=== PATIENT | female | born 1990 | race American Indian/Alaskan Native ===

== ENCOUNTER 2017-09-16 14:43 | Outpatient (CLI) | payer OTHER | END 2017-09-17 11:12 | disposition home or self-care (01) | LOC: OBS/DEL 14:43 | DX: O47.1 False labor at or after 37 completed weeks of gestation (principal); Z34.03 Encounter for supervision of normal first pregnancy, third trimester ==

== ENCOUNTER 2017-09-26 10:05 | Inpatient (IN) | payer OTHER ==
[~2017-09-26] VITALS: Ht 167.6 cm; Wt 62.6 kg
[2017-09-26] MEDS ORDERED: FE C PLUS TABL1 EACH PO (14:13)
[2017-09-26] MEDS ORDERED: PRENATAL 19 TA1 EAC1 PO (14:13)
== END 2017-09-28 12:23 | disposition home or self-care (01) | DRG 775 ==
LOC: LDR 10:05 → OB/GYN 12:23
PROC: 10E0XZZ Delivery of Products of Conception, External Approach (ICD-10-PCS; principal; 2017-09-26)
PROC: 0W8NXZZ Division of Female Perineum, External Approach (ICD-10-PCS; 2017-09-26)
PROC: 10907ZC Drainage of Amniotic Fluid, Therapeutic from Products of Conception, Via Natural or Artificial Opening (ICD-10-PCS; 2017-09-26)
PROC: 4A1HXCZ Monitoring of Products of Conception, Cardiac Rate, External Approach (ICD-10-PCS; 2017-09-26)
DX: O69.1XX0 Labor and delivery complicated by cord around neck, with compression, not applicable or unspecified (principal); Z3A.40 40 weeks gestation of pregnancy; Z37.0 Single live birth

== ENCOUNTER 2018-01-04 09:18 | Day surgery (SDC) | payer OTHER ==
[~2018-01-04 09:18] MED LIST: FE C PLUS TABL1 EACH PO; PRENATAL 19 TA1 EAC1 PO
[2018-01-04] MEDS ORDERED: PERCOCET 5-3251 EACH PO (13:34)
== END 2018-01-04 18:30 | disposition home or self-care (01) ==
LOC: CIR.AMB 09:18
DX: Z30.2 Encounter for sterilization (principal)